=== PATIENT | male | born 1975 | race African-American/Black ===

== ENCOUNTER 2024-11-15 06:31 | Emergency (ER) | payer MEDICAID, OTHER ==
[~2024-11-15] VITALS: Ht 172.7 cm; Wt 70.5 kg
[2024-11-15 06:38] VITALS: TEMP 97.8
[2024-11-15] MEDS ORDERED: HYDROGEN PEROXIDE 118 ML SOLUTION ONE (06:39)
[2024-11-15] MEDS: PERTUSS(ACELL),DIPH,TET/PF 0.5 ML SYRINGE [ADULT] IM. ONE (06:43)
[2024-11-15] MEDS: CeFAZolin 1 GM/DEXTROSE 50 ML IV ONE (06:43)
[2024-11-15] MEDS: SODIUM CHLORIDE 0.9% 1,000 ML IV ONE (06:44)
[2024-11-15] MEDS: HYDROGEN PEROXIDE 118 ML SOLUTION TP ONE (06:44)
[2024-11-15] MEDS: LIDOCAINE 1%/EPI 1:200,000/PF 10 ML VIAL SQ ONE (06:44)
[2024-11-15 07:01] LABS: BASOPHILS % (AUTO) 0.5 % (0.0-2.0); EOSINOPHILS % (AUTO) 7.2 % (1.0-6.0); HEMATOCRIT 40.1 % (41-53); HEMOGLOBIN 13.1 g/dL (13.5-17.5); LYMPHOCYTES # (AUTO) 5.1 K/uL (1.0-4.8); LYMPHOCYTES % (AUTO) 47.5 % (22.0-44.0); MEAN CORPUSCULAR HEMOGLOBIN 27.4 pg (26.0-34.0); MEAN CORPUSCULAR HGB CONC 32.7 G/dL (31.0-37.0); MEAN CORPUSCULAR VOLUME 84 fL (80-100); NEUTROPHILS # (AUTO) 3.9 K/uL (1.8-7.7); NEUTROPHILS % (AUTO) 35.8 % (40.0-70.0); PLATELET COUNT (AUTO) 265 K/uL (150-450); RED BLOOD CELL COUNT(AUTO) 4.78 MIL/uL (4.50-5.90); RED CELL DISTRIBUTION WIDTH 14.3 % (11.5-14.5); WHITE BLOOD COUNT (AUTO) 10.8 K/uL (4.5-11.0)
[2024-11-15] MEDS ORDERED: LIDOCAINE 1% 10 ML VIAL ONE ×2 (08:06→09:22)
[2024-11-15] MEDS ORDERED: IBUP-1492 PO (10:05)
[2024-11-15] MEDS ORDERED: PERCT PO (10:05)
[2024-11-15] MEDS ORDERED: CEPH-558 PO (10:05)
[2024-11-15 10:12] VITALS: BP 141/99; PULSE 94; RESP 18; O2SAT 97
== END 2024-11-15 10:24 | disposition home or self-care (01) ==
LOC: EMS 06:31
DX: S21.112A Laceration without foreign body of left front wall of thorax without penetration into thoracic cavity, initial encounter (principal); S41.112A Laceration without foreign body of left upper arm, initial encounter; S41.012A Laceration without foreign body of left shoulder, initial encounter; F17.210 Nicotine dependence, cigarettes, uncomplicated; W11.XXXA Fall on and from ladder, initial encounter; Y93.89 Activity, other specified; Y92.69 Other specified industrial and construction area as the place of occurrence of the external cause; Y99.0 Civilian activity done for income or pay
CPT/HCPCS: 99285; 12034; 96365; 71045; 85025; 36415; 90715; 90471; 12001; J0690; J3490 ×2; J7030

== ENCOUNTER 2024-11-18 09:38 | Emergency (ER) | payer OTHER ==
[~2024-11-18] VITALS: Ht 177.8 cm; Wt 74.1 kg
[~2024-11-18 09:38] MED LIST: CEPH-558 PO; IBUP-1492 PO; PERCT PO
[2024-11-18 09:42] VITALS: TEMP 98.3
[2024-11-18 10:15] VITALS: BP 130/80; PULSE 74; RESP 18; O2SAT 99
== END 2024-11-18 10:35 | disposition home or self-care (01) ==
LOC: EMS 09:39
DX: S21.112D Laceration without foreign body of left front wall of thorax without penetration into thoracic cavity, subsequent encounter (principal); S41.012D Laceration without foreign body of left shoulder, subsequent encounter; F17.210 Nicotine dependence, cigarettes, uncomplicated; Z79.899 Other long term (current) drug therapy; W11.XXXD Fall on and from ladder, subsequent encounter; Y99.8 Other external cause status
CPT/HCPCS: 99281; Z7502

== ENCOUNTER 2024-11-23 11:55 | Emergency (ER) | payer OTHER ==
[~2024-11-23] VITALS: Ht 177.8 cm; Wt 72.7 kg
[2024-11-23 12:02] VITALS: BP 128/99; PULSE 98; RESP 18; TEMP 98.6; O2SAT 99
== END 2024-11-23 13:23 | disposition home or self-care (01) ==
LOC: EMS 11:59
DX: S21.91XD Laceration without foreign body of unspecified part of thorax, subsequent encounter (principal); S41.012D Laceration without foreign body of left shoulder, subsequent encounter; F17.210 Nicotine dependence, cigarettes, uncomplicated; Z79.1 Long term (current) use of non-steroidal anti-inflammatories (NSAID); Z79.899 Other long term (current) drug therapy
CPT/HCPCS: 99281; Z7502